=== PATIENT | male | born 1980 | race African-American/Black ===

== ENCOUNTER 2021-03-22 16:08 | Emergency (ER) | payer BC ==
[~2021-03-22] VITALS: Ht 190.5 cm; Wt 81.7 kg
[~2021-03-22 16:08] MED LIST: FLEXERIL PO; NOHOMEMEDICATIONS; VICODIN 5-5001 EACH PO
[2021-03-22 17:06] LABS: ABSOLUTE NEUTROPHILS 7.3 thou/uL (1.4-8.2); BASOPHILS 0.9 % (0.0-2.0); EOSINOPHILS 0.3 % (0.0-3.0); HEMATOCRIT 43.8 % (42.0-52.0); HEMOGLOBIN 14.9 gm/dL (14.0-18.0); LYMPHOCYTES 19.5 % (24.0-44.0); MCH 30.2 pg (26.0-34.0); MCHC 34.1 g/dL (28.0-37.0); MCV 88.5 fL (80.0-100.0); MONOCYTES 9.6 % (1.0-8.0); PLATELET COUNT 238 thou/uL (150-400); POLYS 69.7 % (36.0-66.0); RBC 4.95 mil/uL (4.50-6.00); RDW 14.2 % (10.5-14.5); WBC 10.4 thou/uL (4.0-11.0)
[2021-03-22 18:06] LABS: ALBUMIN 3.4 g/dL (3.4-5.0); AMYLASE 49 U/L (25-115); ANION GAP 9 mmol/L (7-16); BUN 9 mg/dL (7-18); CALCIUM 8.5 mg/dL (8.5-10.1); CHLORIDE 103 mmol/L (98-107); CO2 26 mmol/L (21-32); CREATININE 0.9 mg/dL (0.7-1.3); DIRECT BILIRUBIN 0.2 mg/dL (<0.1-0.2); GLUCOSE 91 mg/dL (74-106); LIPASE 71 U/L (73-393); MAGNESIUM 1.8 mg/dL (1.8-2.4); PHOSPHORUS 2.8 mg/dL (2.6-4.7); POTASSIUM 3.9 mmol/L (3.5-5.1); SGOT 12 U/L (15-37); SGPT 19 U/L (16-63); SODIUM 138 mmol/L (136-145); TOTAL BILIRUBIN 0.7 mg/dL (0.2-1.0); TOTAL PROTEIN 6.7 g/dL (6.4-8.2)
[2021-03-22 18:29] LABS: TROPONIN-I <0.06 ng/mL (<0.06)
[2021-03-22] MEDS ORDERED: TYLENOL325 M1 PO (18:41)
[2021-03-22] MEDS ORDERED: DOXYCYCLINE 10100 MG PO (18:41)
[2021-03-22] MEDS ORDERED: NAPROSYN500 MG PO (18:41)
[2021-03-22] MEDS ORDERED: PROAIR HFA8.5 GM INH (18:41)
[2021-03-22 19:28] VITALS: BP 146/91
--- NOTE | 2021-03-23 07:09 | EKG ---
[address] [address] ELECTROCARDIOGRAM REPORT Name: GROVER MARQUES 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
== END 2021-03-22 19:28 | disposition home or self-care (01) ==
LOC: ER 16:08
PROVIDERS: Emergency Medicine
DX: I31.9 Disease of pericardium, unspecified (principal); Z20.822 Contact with and (suspected) exposure to COVID-19; M54.6 Pain in thoracic spine; J40 Bronchitis, not specified as acute or chronic; F12.90 Cannabis use, unspecified, uncomplicated; F17.210 Nicotine dependence, cigarettes, uncomplicated; Z98.890 Other specified postprocedural states